=== PATIENT | male | born 1950 | race Caucasian/White ===

== ENCOUNTER 2017-03-16 09:22 | Emergency (ER) | payer BC ==
--- NOTE | 2017-03-16 09:42 | PHYS DOC ---
Adult General Chief Complaint Chief Complaint: HEMORRHOIDS HPI HPI Patient is a 66 year old male who presents with rectal bleeding and hemorrhoids. He states he's had issues with this in the past and in [address] Cook in [facility], he states over the last several years and began worse he's been having to use his 's panty liner to help protect his underwear from bleeding. She's been having worsening pain and it sometimes he has blood running down the back of his leg. He is usually seen at the [facility] in the resident's clinic. Review of Systems Review of Systems Constitutional: Denies fever or chills [] Eyes: Denies change in visual acuity, redness, or eye pain [] HENT: Denies nasal congestion or sore throat [] Respiratory: Denies cough or shortness of breath [] Cardiovascular: No additional information not addressed in HPI [] GI: Denies abdominal pain, nausea, vomiting, bloody stools or diarrhea [] : Denies dysuria or hematuria [] Musculoskeletal: Denies back pain or joint pain [] Integument: Denies rash or skin lesions [] Neurologic: Denies headache, focal weakness or sensory changes [] Endocrine: Denies polyuria or polydipsia [] Physical Exam Physical Exam Constitutional: Well developed, well nourished, no acute distress, non-toxic appearance. [] HENT: Normocephalic, atraumatic, bilateral external ears normal, oropharynx moist, no oral exudates, nose normal. [] Eyes: PERRLA, EOMI, conjunctiva normal, no discharge. [] Neck: Normal range of motion, no tenderness, supple, no stridor. [] Cardiovascular:Heart rate regular rhythm, no murmur [] Lungs & Thorax: Bilateral breath sounds clear to auscultation [] Abdomen rectal exam: Bowel sounds normal, soft, no tenderness, no masses, no pulsatile masses. Rectal exam shows external hemorrhoids without any pain or tenderness, normal tone. Skin: Warm, dry, no erythema, no rash. [] Back: No tenderness, no CVA tenderness. [] Extremities: No tenderness, no cyanosis, no clubbing, ROM intact, no edema. [] Neurologic: Alert and oriented X 3, normal motor function, normal sensory function, no focal deficits noted. [] Psychologic: Affect normal, judgement normal, mood normal. [] Current Patient Data Vital Signs Vital Signs Date Time Temp Pulse Resp B/P (MAP) Pulse Ox O2 Delivery O2 Flow Rate FiO2 03/16/17 13:40 67 14 118/75 (89) 98 Room Air 03/16/17 09:50 98.3 98.3 Lab Values Laboratory Tests Test 03/16/17 10:24 03/16/17 10:28 White Blood Count 5.3 x10^3/uL (4.0-11.0) Red Blood Count 4.98 x10^6/uL (4.30-5.70) Hemoglobin 14.0 g/dL (13.0-17.5) Hematocrit 41.1 % (39.0-53.0) Mean Corpuscular Volume 83 fL (79-100) Mean Corpuscular Hemoglobin 28 pg (25-35) Mean Corpuscular Hemoglobin Concent 34 g/dL (31-37) Red Cell Distribution Width 14.1 % (11.5-14.5) Platelet Count 258 x10^3/uL (140-400) Neutrophils (%) (Auto) 64 % (31-73) Lymphocytes (%) (Auto) 21 % (24-48) L Monocytes (%) (Auto) 7 % (0-9) Eosinophils (%) (Auto) 6 % (0-3) H Basophils (%) (Auto) 1 % (0-3) Neutrophils # (Auto) 3.4 x10^3uL (1.8-7.7) Lymphocytes # (Auto) 1.1 x10^3/uL (1.0-4.8) Monocytes # (Auto) 0.4 x10^3/uL (0.0-1.1) Eosinophils # (Auto) 0.3 x10^3/uL (0.0-0.7) Basophils # (Auto) 0.1 x10^3/uL (0.0-0.2) Prothrombin Time 12.8 SEC (11.7-14.0) Prothrombin Time INR 1.0 (0.8-1.1) Sodium Level 142 mmol/L (136-145) Potassium Level 3.4 mmol/L (3.5-5.1) L Chloride Level 105 mmol/L (98-107) Carbon Dioxide Level 27 mmol/L (21-32) Anion Gap 10 (6-14) Blood Urea Nitrogen 17 mg/dL (8-26) Creatinine 1.0 mg/dL (0.7-1.3) Estimated GFR (Cockcroft-Gault) 75.2 BUN/Creatinine Ratio 17 (6-20) Glucose Level 115 mg/dL (70-99) H Calcium Level 8.9 mg/dL (8.5-10.1) Total Bilirubin 0.3 mg/dL (0.2-1.0) Aspartate Amino Transferase (AST) 22 U/L (15-37) Alanine Aminotransferase (ALT) 44 U/L (16-63) Alkaline Phosphatase 80 U/L (46-116) Total Protein 7.4 g/dL (6.4-8.2) Albumin 3.8 g/dL (3.4-5.0) Albumin/Globulin Ratio 1.1 (1.0-1.7) Stool Occult Blood Negative (NEG) Laboratory Tests 03/16/17 10:24 Laboratory Tests 03/16/17 10:24 EKG EKG [] Radiology/Procedures Radiology/Procedures [] Impressions: Hemorrhoids Course & Med Decision Making Course & Med Decision Making Pertinent Labs and Imaging studies reviewed. (See chart for details) Patient presents with external hemorrhoids bleeding. He states he's had them surgically excised internal and external hemorrhoids several years ago and they' ve been slowly coming back. Rectal exam did not show any obvious bleeding or pain. Spoke with Dr. Carolina who once a warm towel replace this is a computer reduce. We placed warm towel however they're not reproducible therefore I believe these are external hemorrhoids. He is instructed to follow up tomorrow with Dr. Carolina in his office after he calls and makes appointment. Anusol was given as a prescription. Patient is instructed to return back to ER for severe pain or bleeding or other concerns. He is agreeable plan being discharged in stable condition at this time. Dragon Disclaimer Dragon Disclaimer This electronic medical record was generated, in whole or in part, using a voice recognition dictation system. Departure Departure Impression: Primary Impression: External hemorrhoid Disposition: 01 HOME, SELF-CARE Condition: STABLE Referrals: BASIA CAROLINA MD Patient Instructions: Hemorrhoids Additional Instructions: You were seen today for your hemorrhoids. You will need to follow-up with Dr. Carolina. Please call his office today and schedule follow-up appointment for tomorrow. Please to his office that he wanted to fit it into his schedule in the morning. You can use Anusol as directed for pain and discomfort. You can use MiraLAX which is a stool softener to help soften your stools. If your pain gets worse you have bleeding from her rectum, generalized weakness or other concerns please return back to emergency department. Scripts Hydrocortisone Acetate (ANUSOL-HC) 25 Mg Supp.rect 1 SUPP RC BID, #14 SUPP Prov: YVONNE MCMULLEN MD 03/16/17 YVONNE MCMULLEN MD Mar 16, 2017 09:42
[2017-03-16 10:34] LABS: BASO # 0.1 x10^3/uL (0.0-0.2); BASO % 1 % (0-3); EOS % 6 % (0-3); HEMATOCRIT 41.1 % (39.0-53.0); LYMPH # 1.1 x10^3/uL (1.0-4.8); LYMPH % 21 % (24-48); MEAN CORPUSCULAR HEMOGLOBIN 28 pg (25-35); MEAN CORPUSCULAR HGB CONC 34 g/dL (31-37); MEAN CORPUSCULAR VOLUME 83 fL (79-100); MONO % 7 % (0-9); NEUT % 64 % (31-73); PLATELET COUNT 258 x10^3/uL (140-400); RED BLOOD COUNT 4.98 x10^6/uL (4.30-5.70); RED CELL DISTRIBUTION WIDTH 14.1 % (11.5-14.5); WHITE BLOOD COUNT 5.3 x10^3/uL (4.0-11.0)
[2017-03-16 10:44] LABS: PROTHROMBIN TIME PATIENT 12.8 SEC (11.7-14.0)
[2017-03-16 10:46] LABS: CALCIUM 8.9 mg/dL (8.5-10.1); GFR 75.2; POTASSIUM 3.4 mmol/L (3.5-5.1)
[2017-03-16 10:52] LABS: ALBUMIN 3.8 g/dL (3.4-5.0); ALBUMIN/GLOBULIN RATIO 1.1 (1.0-1.7); TOTAL BILIRUBIN 0.3 mg/dL (0.2-1.0); TOTAL PROTEIN 7.4 g/dL (6.4-8.2)
[2017-03-16 12:06] LABS: NEG OBC FOB NEG; POS OBC FOB POS
[2017-03-16] MEDS ORDERED: HYDR25SU18 RC (13:20)
[2017-03-16 13:40] VITALS: BP 118/75
== END 2017-03-16 13:41 | disposition home or self-care (01) ==
LOC: ER 09:22
DX: K64.5 Perianal venous thrombosis (principal)
CPT/HCPCS: 36415; 80053; 82274; 85025; 85610; 99284